=== PATIENT | female | born 2000 | race Two or more races ===

== ENCOUNTER 2022-10-13 11:23 | Emergency (ER) | payer MEDICAID, OTHER ==
[~2022-10-13] VITALS: Ht 157.5 cm; Wt 61.0 kg
[2022-10-13 12:32] LABS: Urine Bacteria NONE SEEN /hpf (None Seen); Urine Blood 3+ /uL (Negative); Urine Mucus FEW (None Seen); Urine Specific Gravity 1.021 (1.001-1.035); Urine WBC 23 /hpf (0 - 5)
[2022-10-13 13:29] VITALS: BP 103/58
[2022-10-13] MEDS ORDERED: CEPH-322 PO (13:43)
== END 2022-10-13 13:51 | disposition home or self-care (01) ==
LOC: ER 11:23
DX: N39.0 Urinary tract infection, site not specified (principal)
CPT/HCPCS: 81001; 81025

== ENCOUNTER 2023-07-30 11:45 | Emergency (ER) | payer SELFPAY ==
[~2023-07-30] VITALS: Ht 157.5 cm; Wt 66.5 kg
[~2023-07-30 11:45] MED LIST: CEPH250C PO
[2023-07-30 12:56] LABS: Basophils # (auto) 0.1 10 ^3/uL (0-0.2); Eosinophils # (auto) 0 10 ^3/uL (0-0.8); Hematocrit 33.9 % (36.0-46.0); Hemoglobin 10.6 g/dL (12.2-16.2); Lymphocytes # (auto) 1.2 10 ^3/uL (0.4-5.4); Lymphocytes % (auto) 13.5 % (10.0-50.0); Mean Corpuscular Hgb Conc. 31.3 g/dL (32.0-36.0); Red Cell Distribution Width 16.1 % (11.8-14.3)
[2023-07-30 12:57] LABS: Basophils % (auto) 0.8 % (0.0-2.0); Eosinophils % (auto) 0.4 % (0.0-7.0); Mean Corpuscular Hemoglobin 24.2 pg (28.0-32.0); Mean Corpuscular Volume 77.4 fL (80.0-100.0); Monocytes # (auto) 0.5 10 ^3/uL (0-1.3); Monocytes % (auto) 5.2 % (0.0-12.0); Neutrophils # (auto) 7.1 10 ^3/uL (1.6-8.6); Neutrophils % (auto) 80.1 % (37.0-80.0); Red Blood Cells 4.38 10^6/uL (4.0-5.20); White Blood Cell 8.9 10^3/uL (4.4-10.8)
[2023-07-30 13:02] LABS: Chloride 106 mmol/L (98-107); Potassium 3.7 mmol/L (3.5-5.1); Sodium 139 mmol/L (136-145)
[2023-07-30 13:03] LABS: Anion Gap 8 (5-15); Carbon Dioxide 25 mmol/L (20-30)
[2023-07-30 13:08] LABS: BUN/Creatinine Ratio 12.7 (10.0-20.0); Blood Urea Nitrogen 8 mg/dL (9-23); Glucose 120 mg/dL (74-106)
[2023-07-30 13:14] VITALS: BP 130/71; PULSE 76; RESP 16; TEMP 99.4; O2SAT 100
== END 2023-07-30 14:15 | disposition home or self-care (01) ==
LOC: ER 11:45
DX: O20.0 Threatened abortion (principal); R10.2 Pelvic and perineal pain; O20.9 Hemorrhage in early pregnancy, unspecified; Z3A.08 8 weeks gestation of pregnancy; Z79.899 Other long term (current) drug therapy
CPT/HCPCS: 36415; 76801; 76817; 80048; 81025; 84702; 85025

== ENCOUNTER 2023-08-01 09:18 | Emergency (ER) | payer SELFPAY ==
[~2023-08-01] VITALS: Ht 157.5 cm; Wt 66.9 kg
[2023-08-01 09:26] VITALS: TEMP 98
[2023-08-01 09:36] VITALS: BP 116/72; PULSE 91; RESP 15; O2SAT 99
== END 2023-08-01 10:46 | disposition home or self-care (01) ==
LOC: ER 09:18
DX: O03.9 Complete or unspecified spontaneous abortion without complication (principal); R10.2 Pelvic and perineal pain; Z79.899 Other long term (current) drug therapy
CPT/HCPCS: 36415; 84702